=== PATIENT | male | born 1965 | race African-American/Black ===

== ENCOUNTER 2016-07-03 17:59 | Observation (INO) | payer OTHER ==
--- NOTE | ~2016-07-03 | HP ---
History And Physical [place] [id number] [facility] [place]. [address] NAME: UMAIR DOMÍNGUEZ JR : 65 STATUS : ADM [place] PAT#: [id number] AGE: 51 ADM/REG DATE : 07/03/16 MR#: [id number] REPORT SERV DATE: 07/04/16 DICTATED BY: ZAIRA HOLM DATE: 07/04/16 REPORT STATUS : Draft TRANSCRIBED BY: MODL DATE: 07/04/16 DATE OF ADMISSION: 07/03/2016 CHIEF COMPLAINT: A 51-year-old male presenting with weakness and syncope. HISTORY OF PRESENTING ILLNESS: The patient's history was obtained through careful interview with the patient and , coupled with review of [facility] medical records. The patient admits to being noncompliant with his diabetic management, has been unable to get insulin recently because of cost issues and he states that his blood sugars are always in the 300s and 400s. It is in the context of this medical condition that over the last few weeks, the patient has been feeling increasingly weak and debilitated. He describes dyspnea on exertion, lightheadedness. On the morning of this admission, he got up to try to go to work and felt too weak to even walk with increasing shortness of breath. He became dizzy, passed out for about one to two minutes and was somewhat confused after passing out. When he did fall, he hit the back of his head, initially had a headache, but it resolved quickly. He became diaphoretic. Had subjective fevers and chills that are now resolved. His main complaint has been a twisting discomfort of his left knee, 10/10 severity ever since he fell, difficulty bearing weight on it because of the pain. He has chronic nausea, occasional vomiting, and symptomatic hiatal hernia with reflux symptoms. No change from baseline though. REVIEW OF SYSTEMS: Otherwise, a 14-point review of systems was obtained and was negative. PAST MEDICAL HISTORY: 1. Diabetes with history of noncompliance. 2. Chronic kidney disease, but most recent baseline creatinine was as low as 0.9. 3. Hypertension. 4. Childhood asthma. 5. Hiatal hernia. 6. Possible congestive heart failure? PAST SURGICAL HISTORY: Denies any. ALLERGIES: NO KNOWN DRUG ALLERGIES. SOCIAL HISTORY: He smokes cigarettes. Drinks occasional alcohol. Is . Has five children. Works for [employer]. History And Physical [facility] [address] [place]. [address] NAME: UMAIR DOMÍNGUEZ JR : 65 STATUS : ADM [place] PAT#: [id number] AGE: 51 ADM/REG DATE : 07/03/16 MR#: [id number] REPORT SERV DATE: 07/04/16 DICTATED BY: ZAIRA HOLM DATE: 07/04/16 REPORT STATUS : Draft TRANSCRIBED BY: CATERINA DATE: 07/04/16 FAMILY HISTORY: Both mother and father had end-stage renal disease, on dialysis. Father received a kidney transplant. There is strong family history of diabetes. CURRENT MEDICATIONS: Include Norvasc 10 mg as needed, Lipitor 40 mg p.o. daily, Tums as needed, ibuprofen p.r.n., sliding-scale insulin, Levemir 15 units subcutaneous as needed, lisinopril/hydrochlorothiazide 10/12.5 p.o. daily, Lopressor 25 mg p.o. b.i.d. PHYSICAL EXAMINATION: VITAL SIGNS: Temperature 97.7, pulse 95, blood pressure 125/79, respiratory rate 17, O2 saturation 98% on 2 L nasal cannula. GENERAL: A pleasant, cooperative male, in no evidence of acute distress though. HEENT: Pupils equal, round, and reactive to light. No conjunctival pallor. No scleral icterus. Nares are patent. Oropharynx is clear of obstruction. Very dry mucous membranes. NECK: Trachea midline. No thyromegaly. LYMPH: No cervical lymphadenopathy. No supraclavicular lymphadenopathy. RESPIRATORY: Clear to auscultation at bases. No wheezes, rales, or rhonchi. Normal respiratory effort. CARDIOVASCULAR: Regular rate and rhythm. No murmurs, rubs, or gallops. No extremity edema is appreciated. ABDOMEN: Soft, nontender, nondistended. Normal bowel sounds auscultated throughout. No hepatosplenomegaly. DERMATOLOGICAL: Warm and dry extremities. No pallor, no cyanosis. PSYCHIATRIC: Normal affect. Good mood. Alert and oriented x3. LABORATORY DATA: White blood cell count 10, hemoglobin 15, hematocrit 41, platelets 195. Sodium 136, potassium 3.8, chloride 100, bicarb 26, BUN 26, creatinine 2.1. Glucose 476. Troponin negative. INR 1.0. ABG demonstrates pH 7.37, a PaCO2 of 34, a PaO2 of 68, and a bicarb of 19. STUDIES: 1. Chest x-ray by my own evaluation shows no acute cardiopulmonary process. 2. EKG by my own evaluation shows sinus rhythm, left ventricular hypertrophy, left atrial abnormality, T-wave inversions in leads 1 and aVL. 3. An x-ray of the knee was reported as being "negative.". ASSESSMENT AND PLAN: 1. Syncope with dehydration. Place on IV fluids. Follow orthostatics. 2. Acute kidney injury. Place on IV fluids. Hold hydrochlorothiazide. 3. Uncontrolled diabetes, but noncompliant because of cost issues related to his insulin. We will ask for a family educator consult, a Case Management consult. We will restart basal insulin and sliding scale insulin for now. 4. Congestive heart failure with this episode of syncope. Would like to place on telemetry and check an echocardiogram. Also noted the patient does have a nonspecific abnormal EKG. History And Physical [address] [address] NAME: UMAIR DOMÍNGUEZ JR : 65 STATUS : ADM [place] PAT#: [id number] AGE: 51 ADM/REG DATE : 07/03/16 MR#: [id number] REPORT SERV DATE: 07/04/16 DICTATED BY: ZAIRA HOLM DATE: 07/04/16 REPORT STATUS : Draft TRANSCRIBED BY: CATERINA DATE: 07/04/16 KAYLEE/CATERINA Zaira Holm M.D. / [id number] CC: Umair Fitzgerald Jr, MD
--- NOTE | ~2016-07-03 | DS ---
Discharge Summary [address] [place]. [address] NAME: UMAIR DOMÍNGUEZ JR : 65 STATUS : DIS [place] PAT#: [id number] AGE: 51 ADM/REG DATE : 07/03/16 MR#: [id number] REPORT SERV DATE: 07/05/16 DICTATED BY: JR. FITZGERALD WILLIAM JOHN DATE: 07/04/16 REPORT STATUS : Draft TRANSCRIBED BY: MODL DATE: 07/04/16 ADMISSION DATE: 07/03/2016 DISCHARGE DATE: 07/04/2016 DISCHARGE DIAGNOSES: 1. Near syncope secondary to dehydration with fall. 2. Left knee soft tissue injury. 3. Acute kidney injury. 4. Uncontrolled diabetes mellitus type 2 with a hemoglobin A1c of 15.2. 5. Mild diastolic heart failure. 6. Essential hypertension. OPERATIONS/PROCEDURES AND TREATMENTS: 1. Left knee x-ray which showed osteoarthritic change without fracture or dislocation. 2. Echocardiogram which showed ejection fraction of 50% to 55% with mild left ventricular hypertrophy, mild diastolic dysfunction, right ventricular size and function was normal. No valvular irregularities noted. 3. CT of the brain done on 07/03 showed an incidental large right subarachnoid cyst with no acute pathology. 4. Chest x-ray done on 07/03 no acute cardiopulmonary process. DISCHARGE MEDICATIONS: 1. Norvasc 10 mg orally daily. 2. Lipitor 40 mg orally daily. 3. Levemir 55 units at the hour of sleep. 4. NovoLog sliding scale level 2. 5. Calcium carbonate 1000 mg as needed. 6. Lisinopril/hydrochlorothiazide 10/12.5, one tablet orally daily. 7. Metoprolol 25 mg orally twice a day. HOSPITAL COURSE: The patient is a 51-year-old male who presented to emergency room after a near syncopal episode with fall and weakness. The patient says he is noncompliant with diabetes management because he cannot afford the medicine. He has had very high blood sugars and has become increasingly weak and dizzy with arising. The patient fell and suffered left knee pain. He presented to the emergency room. On initial exam, his temperature is 97.7, blood pressure is 125/79, heart rate 95, respiratory rate was 17. Exam was unremarkable. Initial blood work was remarkable for a BUN of 26, creatinine of 2.1, glucose 476. Negative troponins. Arterial blood gas initially showed a pH 7.37, PCO2 of 34, and PO2 of 68, bicarbonate of 19. The EKG was unremarkable except T inversion in leads 1 and aVL. X-ray of knee and chest x-ray are detailed above. The patient is admitted to the Clinical Decision Unit. He was IV fluid hydrated and placed on aggressive sliding scale insulin. He was seen by diabetic education, where it was discovered the patient has a rather variable insulin regimen. He says he cannot afford it. Discharge Summary [place] [id number] [place]. [address] NAME: CATRACHITAUMAIR ROBERTS JR : 65 STATUS : DIS [place] PAT#: [id number] AGE: 51 ADM/REG DATE : 07/03/16 MR#: [id number] REPORT SERV DATE: 07/05/16 DICTATED BY: JR. FITZGERALD WILLIAM JOHN DATE: 07/04/16 REPORT STATUS : Draft TRANSCRIBED BY: CATERINA DATE: 07/04/16 The community educator discussed it with his insurance company, and it appears that if we get a 90-day supply, this is an affordable regimen. I therefore chose 55 units at the hour of sleep with level 2 sliding scale insulin. Further refinement will be necessary. As to the syncope/orthostasis by hospital day #2, this had resolved. Regarding acute kidney injury, the patient's renal function recovered with IV fluids. At discharge, his BUN and creatinine are 27 and 1.2 as compared to 26 and 2.1 at admission. Regarding his poorly controlled hypertension, we will resume all of his home medications many of which have been held for orthostatic syncope. Regarding "history of congestive heart failure," he had mild diastolic dysfunction, otherwise ejection fraction was normal. Regarding left knee pain, x-ray was negative. The patient says he walked and it "popped" and got better. He is able to ambulate and desires discharge home. We will discharge the patient home today 07/04/2016 and will follow up at the [facility] in one week. DISCHARGE DIET: ADA. ACTIVITY: As tolerated. For discharge exam and laboratory, please see daily progress note. FOLLOWUP ISSUES: 1. Further refinement of diabetic regimen. 2. Further refinement of the hypertensive medication. 3. Followup of the left knee pain. BRITTANIE/MODL Umair Fitzgerald Jr, MD / [id number] CC: Umair Fitzgerald Jr, MD Mindi Hudson
[~2016-07-03 17:59] MED LIST: ASAB PO; BACDS PO; GLUCPH PO; HALF81 PO; HCTZ12.5 PO; IMDUR30 PO; LEVEMFLXPN SC; LEVEMIR SC; LIPITOR40 PO; LOP25 PO; NORV10 PO; NORV5 PO; NOVOLOG SC; NOVOPEN; NOVOPEN SC; PRIN10 PO; PRINZIDE1 TAB PO; SILVASORB TOP; TRADJENTA5 MG PO; TYLENOL 8 HR650 MG PO
[2016-07-03 18:59] LABS: BE (BASE EXCESS) -5.3 MEQ/L (0 +/- 2.5); CARBOXYHEMOGLOBIN 5.5 % (0-3); HEMOBLOGIN CONTENT 14.4 G/DL (14-18); INSTRUMENT SERIAL # 8087; METHEMOGLOBIN 0.2 % (0-3); O2 CONTENT 17.9 VOL% (18-24); PCO2 (CO2 TENSION) 34 MMHG (35-45); PO2 (O2 TENSION) 68 MMHG (79-93); SAMPLE Arterial; pH 7.37 (7.37-7.43)
[2016-07-03 19:15] LABS: BASOPHILS 0.2 %; BASOPHILS ABSOLUTE 0.02 10/3/uL (0.0-0.16); EOSINOPHILS 1.4 %; EOSINOPHILS ABSOLUTE 0.14 10/3/uL (0.0-0.53); ER CBC TAT 0 Hrs 08 Mins; HEMOGLOBIN 14.7 g/dL (13.6-17.8); IMMATURE GRANULOCYTES 0.5 %; IMMATURE GRANULOCYTES ABSOLUTE 0.05 10/3/uL (0.0-0.11); LYMPHOCYTES 27.5 %; LYMPHOCYTES ABSOLUTE 2.74 10/3/uL (0.67-4.30); MEAN CORPUS HGB CONC 35.9 g/dL (32.0-36.0); MEAN CORPUSCULAR HEMOGLOB 28.8 pg (26.0-34.0); MEAN CORPUSCULAR VOLUME 80.4 fL (80-100); MEAN PLATELET VOLUME 11.3 fL (9.2-13.0); NEUTROPHILS 63.4 %; NEUTROPHILS ABSOLUTE 6.33 10/3/uL (2.02-8.40); RBC DISTRIBUTION WIDTH 12.9 % (12.0-16.0)
[2016-07-03 19:16] LABS: MANUAL DIFF NO %; PLATELET COUNT 195 10/3/uL (150-400)
[2016-07-03 19:26] LABS: PROTIME (NOT ORD) 13.1 SEC (12.0-14.5)
[2016-07-03 19:28] LABS: PARTIAL THROMBO TIME 22.8 SEC (22.5-37.2)
[2016-07-03 19:30] LABS: BUN (BLOOD UREA NITROGEN) 26 MG/DL (6-23); CHEST PAIN PROFILE TAT 0 Hrs 23 Mins; CHLORIDE, SERUM 100 MMOL/L (96-112); CO2 (CARBON DIOXIDE) 26 MMOL/L (24-34); GFR AFRICAN AMERICAN 41 ML/MIN (>=60); GFR NON AFRICAN AMERICAN 35 ML/MIN (>=60); GLUCOSE, SERUM 476 MG/DL (60-99); POTASSIUM, SERUM 3.8 MMOL/L (3.5-5.3); SODIUM, SERUM 136 MMOL/L (135-148); TROPONIN I <0.02 NG/ML (<0.05)
[2016-07-03] MEDS ORDERED: TUMSROLL PO (20:01)
[2016-07-03] MEDS ORDERED: MOTRIN IB200 MG PO (20:01)
[2016-07-03] MEDS ORDERED: LEVEMFLXPN SC (20:02)
[2016-07-03 20:10] LABS: ASCORBIC ACID (UR NOT ORDER) NEG (NEG); BILIRUBIN, URINE NEGATIVE (NEG); KETONE, URINE NEGATIVE (NEG); LEUKOCYTE ESTERASE(NOT OR NEG (NEG); NITRITE (URINE) NEG (NEG); WBC (NOT ORDERED) (RFLEX) 1 (0-5)
[2016-07-03] MEDS ORDERED: LIPITOR40 PO (20:21)
[2016-07-03] MEDS ORDERED: LOP25 PO (20:22)
[2016-07-03] MEDS ORDERED: PRINZIDE1 TAB PO (20:23)
[2016-07-03] MEDS ORDERED: NORV10 PO (20:24)
[2016-07-03] MEDS ORDERED: NOVOLOG SC (20:24)
[2016-07-03 20:32] LABS: AMPHETAMINES (NOT ORD) NEG (NEG); BARBITURATES (NOT ORDERED NEG (NEG); BENZODIAZEPINES (NOT ORD) NEG (NEG); CANNABINOIDS (THC) NEG (NEG); COCAINE (NOT ORDERED) NEG (NEG); OPIATES NEG (NEG); PHENCYCLIDINE(PCP) NEG (NEG); TRICYCLICS NEG (NEG)
[2016-07-04 04:56] LABS: PARTIAL THROMBO TIME 29.6 SEC (22.5-37.2)
[2016-07-04 04:57] LABS: PROTIME (NOT ORD) 13.1 SEC (12.0-14.5)
[2016-07-04 05:10] LABS: BUN (BLOOD UREA NITROGEN) 27 MG/DL (6-23); CHLORIDE, SERUM 106 MMOL/L (96-112); SODIUM, SERUM 137 MMOL/L (135-148); TOTAL BILIRUBIN 0.3 MG/DL (0-1.2); TROPONIN I 0.02 NG/ML (<0.05); ULTRASENSITIVE TSH 0.593 MCIU/ML (0.358-3.740)
[2016-07-04 05:19] LABS: BASOPHILS 0.2 %; BASOPHILS ABSOLUTE 0.02 10/3/uL (0.0-0.16); EOSINOPHILS 1.2 %; EOSINOPHILS ABSOLUTE 0.13 10/3/uL (0.0-0.53); HEMATOCRIT 38.1 % (40.0-51.0); HEMOGLOBIN 13.5 g/dL (13.6-17.8); IMMATURE GRANULOCYTES 0.3 %; IMMATURE GRANULOCYTES ABSOLUTE 0.03 10/3/uL (0.0-0.11); LYMPHOCYTES 27.1 %; LYMPHOCYTES ABSOLUTE 2.92 10/3/uL (0.67-4.30); MANUAL DIFF NO %; MEAN CORPUS HGB CONC 35.4 g/dL (32.0-36.0); MEAN CORPUSCULAR HEMOGLOB 28.7 pg (26.0-34.0); MEAN CORPUSCULAR VOLUME 81.1 fL (80-100); MEAN PLATELET VOLUME 11.3 fL (9.2-13.0); MONOCYTES 7.1 %; MONOCYTES ABSOLUTE 0.76 10/3/uL (0.21-1.20); NEUTROPHILS 64.1 %; PLATELET COUNT 177 10/3/uL (150-400); RBC DISTRIBUTION WIDTH 13.1 % (12.0-16.0); WHITE BLOOD CELLS 10.8 10/3/uL (4.5-10.5)
[2016-07-04 05:37] LABS: A/G RATIO 0.9 (0.7-1.9); ALKALINE PHOSPHATASE 103 U/L (45-117); CALCIUM, SERUM 7.8 MG/DL (8.5-10.4); CO2 (CARBON DIOXIDE) 21 MMOL/L (24-34); CREATININE 1.21 MG/DL (0.70-1.30); GFR AFRICAN AMERICAN 80 ML/MIN (>=60); GFR NON AFRICAN AMERICAN 69 ML/MIN (>=60); GLOBULIN 3.4 G/DL (2.5-4.1); GLUCOSE, SERUM 242 MG/DL (60-99); POTASSIUM, SERUM 4.2 MMOL/L (3.5-5.3); TOTAL PROTEIN 6.4 G/DL (6.0-8.5)
[2016-07-04 05:38] LABS: SGOT(AST) 17 U/L (5-40); SGPT(ALT) 19 U/L (5-65)
[2016-07-04 06:03] LABS: B NATRIURETIC PEPTIDE (BNP) 33.7 PG/ML (< 100.0)
[2016-07-04 09:52] LABS: GLYCOHEMOGLOBIN (HbA1c) 15.2 % (4.7-6.1)
[2016-07-04] MEDS ORDERED: LOP25 PO (13:28)
[2016-07-04] MEDS ORDERED: LANTUSCART SC (13:34)
== END 2016-07-04 13:48 | disposition home or self-care (01) ==
LOC: ER 17:59 → CDU1 20:26
PROVIDERS: Emergency Medicine; Internal Medicine
DX: R55 Syncope and collapse (principal); E86.0 Dehydration; I13.0 Hypertensive heart and chronic kidney disease with heart failure and stage 1 through stage 4 chronic kidney disease, or unspecified chronic kidney disease; E11.22 Type 2 diabetes mellitus with diabetic chronic kidney disease; N18.9 Chronic kidney disease, unspecified; I50.30 Unspecified diastolic (congestive) heart failure; J45.909 Unspecified asthma, uncomplicated; F17.210 Nicotine dependence, cigarettes, uncomplicated; S37.009A Unspecified injury of unspecified kidney, initial encounter; S89.92XA Unspecified injury of left lower leg, initial encounter; W19.XXXA Unspecified fall, initial encounter
CPT/HCPCS: 36600; 70450; 71010; 73560-LT; 80048; 80053; 80305; 81001; 82805; 82962; 83036; 83735; 83880; 84443; 84484; 85025; 85610; 85730; 93005; 93306; 96372; 96374; 99285; A9270-GY; G0378